=== PATIENT | female | born 1980 | race Two or more races ===

== ENCOUNTER 2017-11-25 14:58 | Outpatient (CLI) | payer OTHER | END 2017-11-25 16:33 | disposition home or self-care (01) | LOC: SONOGRAMA 14:58 | DX: N63.13 Unspecified lump in the right breast, lower outer quadrant (principal) ==

== ENCOUNTER 2018-01-08 13:54 | Outpatient (CLI) | payer OTHER | END 2018-01-08 14:03 | disposition home or self-care (01) | LOC: EKG 13:54 | DX: I10 Essential (primary) hypertension (principal) ==

== ENCOUNTER → 2018-01-10 | Day surgery (SDC) | payer OTHER | END | disposition home or self-care (01) | LOC: CIR.AMB 06:15 | DX: D24.1 Benign neoplasm of right breast (principal) ==